=== PATIENT | male | born 1980 | race African-American/Black ===

== ENCOUNTER 2019-03-10 11:48 | Emergency (ER) | payer MEDICAID ==
[~2019-03-10] VITALS: Ht 177.8 cm; Wt 73.0 kg
[2019-03-10] MEDS ORDERED: LORAZEPAM 2MG/ML CPJ IM ONE ×2 (12:00→13:00)
[2019-03-10] MEDS ORDERED: DIPHENHYDRAMINE 50MG/ML VIAL IM ONE (12:00)
[2019-03-10] MEDS ORDERED: OLANZAPINE 10 MG/VIAL IM ONE (13:00)
[2019-03-10 13:09] LABS: CLARITY URINE CLEAR (CLEAR); COLOR URINE YELLOW (YELLOW); KETONES URINE NEGATIVE (NEGATIVE); LEUKOCYTE ESTERASE URINE NEGATIVE (NEGATIVE); NITRITE URINE NEGATIVE (NEGATIVE); OCCULT BLOOD URINE NEGATIVE (NEGATIVE); PH URINE 5.5 (4.5-8.0); PROTEIN URINE NEGATIVE (NEGATIVE); SPECIFIC GRAVITY URINE 1.004 (1.005-1.030); UROBILINOGEN URINE 0.2 E.U./dL (0.2-1.0)
[2019-03-10 13:47] LABS: BASOPHILS % 1.2 % (0.0-2.0); EOSINOPHILS % 1.1 % (0.0-5.0); HEMATOCRIT. 43.8 % (42.0-52.0); HEMOGLOBIN. 15.3 g/dL (14.0-18.0); LYMPHOCYTES % 33.5 % (20.0-50.0); MEAN CORPUSCULAR HEMOGLOBIN 32.2 pg (28.0-32.0); MEAN CORPUSCULAR VOLUME 92.6 fL (80.0-94.0); MEAN PLATELET VOLUME 7.7 fl (7.4-10.4); MONOCYTES % 10.6 % (2.0-8.0); NEUTROPHILS % 53.6 % (40.0-76.0); PLATELET 308 x1000/uL (130-400); RED BLOOD CELL COUNT 4.74 mill/uL (4.7-6.1)
[2019-03-10 13:57] LABS: *AMPHETAMINES SCREEN URINE PRESUMTIVE POSITIVE (NEGATIVE); *BARBITURATES SCREEN URINE NEGATIVE (NEGATIVE); *BENZODIAZEPINES SCREEN URINE NEGATIVE (NEGATIVE); *COCAINE SCREEN URINE NEGATIVE (NEGATIVE); METHADONE URINE SCREEN NEGATIVE (NEGATIVE); OPIATES URINE SCREEN NEGATIVE (NEGATIVE)
[2019-03-10 13:58] LABS: CANNABINOID URINE SCREEN PRESUMTIVE POSITIVE (NEGATIVE); PHENCYCLIDINE URINE SCREEN NEGATIVE (NEGATIVE)
[2019-03-10 13:59] LABS: CHLORIDE 103 mEq/L (98-107)
[2019-03-10 14:03] LABS: ETHANOL BLOOD 69 mg/dL
[2019-03-11] MEDS ORDERED: LORAZEPAM 2MG/ML CPJ IM ONE (21:00)
[2019-03-11] MEDS ORDERED: OLANZAPINE 10 MG/VIAL IM ONE (21:00)
[2019-03-11] MEDS ORDERED: QUETIAPINE FUMARATE 50MG TABLET PO SCH (21:15)
[2019-03-12] MEDS ORDERED: POTASSIUM CHLORIDE 20MEQ TABLET SR PO ONE (14:00)
[2019-03-12 14:01] VITALS: BP 112/86
== END 2019-03-12 14:17 ==
LOC: ER 12:06
DX: F31.9 Bipolar disorder, unspecified (principal); F23 Brief psychotic disorder; F29 Unspecified psychosis not due to a substance or known physiological condition; Z88.6 Allergy status to analgesic agent; Z88.8 Allergy status to other drugs, medicaments and biological substances; Z91.19 Patient's noncompliance with other medical treatment and regimen
CPT/HCPCS: 36415; 80053; 80305; 80307; 80320; 80329; 81003; 85025; 96372; 99285; J1200; J2060; J3490; Z7610; G0480

== ENCOUNTER 2024-05-02 04:19 | Emergency (ER) | payer MEDICAID ==
[~2024-05-02] VITALS: Ht 177.8 cm; Wt 91.0 kg
[2024-05-02 04:31] VITALS: TEMP 98.3
[2024-05-02 05:07] VITALS: BP 130/79; PULSE 117; RESP 18; O2SAT 99
[2024-05-02] MEDS: DIPHENHYDRAMINE 50MG/ML VIAL IM ONE (05:07)
[2024-05-02] MEDS: MIDAZOLAM HCL 2 MG/2 ML VIAL IM ONE (05:07)
[2024-05-02] MEDS: KETAMINE HCL 50 MG/ML 10ML IM ONE (05:13)
== END 2024-05-02 05:13 | disposition left against medical advice (07) ==
LOC: ER 04:19
DX: R41.82 Altered mental status, unspecified (principal)
CPT/HCPCS: 99284; 96372; J1200; J3490; J2250